=== PATIENT | female | born 1980 | race Caucasian/White ===

== ENCOUNTER 2016-09-04 11:35 | Inpatient (IN) | payer OTHER ==
[~2016-09-04] VITALS: Ht 152.4 cm; Wt 90.7 kg
[2016-09-04 11:35] VITALS: BP 92/55; PULSE 107; RESP 16; TEMP 98; O2SAT 99
[~2016-09-04 11:35] MED LIST: ALBMDI INH
[2016-09-04 12:17] LABS: BASOPHILS % (AUTO) 0.3 % (0.0-2.0); EOSINOPHILS # (AUTO) 0.2 K/uL (0.0-0.4); EOSINOPHILS % (AUTO) 2.8 % (0.0-4.0); HEMATOCRIT 35.9 % (36-48); HEMOGLOBIN 12.5 g/dL (12.0-16.0); LYMPHOCYTES # (AUTO) 0.8 K/uL (1.0-5.5); LYMPHOCYTES % (AUTO) 12.4 % (20.5-51.5); MEAN CORPUSCULAR HEMOGLOBIN 31 pg (27-31); MEAN CORPUSCULAR HGB CONC 35 % (32-36); MEAN CORPUSCULAR VOLUME 90 fL (79.0-98.0); MONOCYTES # (AUTO) 0.6 K/uL (0.0-1.0); MONOCYTES % (AUTO) 8.9 % (1.7-9.3); NEUTROPHILS # (AUTO) 5.1 K/uL (1.8-7.7); NEUTROPHILS % (AUTO) 75.6 % (40.0-70.0); PLATELET COUNT (AUTO) 123 K/uL (130-430); RED BLOOD CELL COUNT(AUTO) 3.97 MIL/uL (4.2-6.2); RED CELL DISTRIBUTION WIDTH 11.8 % (9.0-15.0); WHITE BLOOD COUNT (AUTO) 6.7 K/uL (4.8-10.8)
[2016-09-04 12:21] LABS: ANION GAP 9 (5-15); CALCIUM 8.3 mg/dL (8.4-11.0); CHLORIDE 104 mmol/L (98-107); CREATININE 1.03 mg/dL (0.55-1.30); GLUCOSE 149 mg/dL (70-99); SODIUM SERUM 135 mmol/L (136-145); UREA NITROGEN, BLOOD 11 mg/dL (8-21)
[2016-09-04 12:23] LABS: PROTHROMBIN TIME 10.8 SECS (9.5-12.5)
[2016-09-04 12:24] LABS: GFR AFRICAN AMERICAN 78 mL/min (>90)
[2016-09-04 12:25] LABS: POTASSIUM 2.7 mmol/L (3.5-5.1)
[2016-09-04] MEDS ORDERED: POTASSIUM CHLORIDE 20 MEQ TAB.PRT.SR PO ONE (12:30)
[2016-09-04] MEDS ORDERED: POTASSIUM CHLORIDE 40 MEQ in NS 250 ML IV ONE (12:30)
[2016-09-04] MEDS ORDERED: NACL 0.9% 1,000 ML IV ONE ×2 (12:30→14:15)
[2016-09-04] MEDS ORDERED: TOPI100T11 PO (12:31)
[2016-09-04 12:38] LABS: ALANINE AMINOTRANSFERASE 33 U/L (12-78); ALBUMIN 3.7 g/dL (3.4-4.8); ASPARTATE AMINOTRANSFERASE 27 U/L (10-37); FREE T4 (FREE THYROXINE) 0.5 ng/dL (0.6-1.6); TOTAL BILIRUBIN 0.4 mg/dL (0.0-1.0)
[2016-09-04 12:40] LABS: ALCOHOL, BLOOD < 3 mg/dL (<10)
[2016-09-04 12:59] LABS: BILIRUBIN,URINE NEGATIVE (NEGATIVE); BLOOD, URINE NEGATIVE (NEGATIVE); CLARITY/URINE SL HAZY (CLEAR); COLOR,URINE YELLOW (YELLOW); GLUCOSE,URINE NEGATIVE (NEGATIVE); KETONES,URINE TRACE (NEGATIVE); LEUKOCYTE ESTERASE ,URINE NEGATIVE (NEGATIVE); NITRITE, URINE NEGATIVE (NEGATIVE); PH,URINE 5.5 (5.0-8.0); PROTEIN URINE TRACE (NEGATIVE); UROBILINOGEN,URINE 0.2 (0.2-1.0)
[2016-09-04] MEDS ORDERED: PIPERACILLIN/TAZO 3.375 GM in NS 50 ML IV ONE (13:00)
[2016-09-04 13:08] LABS: BARBITURATE, URINE NEGATIVE (NEG <=200); BENZODIAZEPINE, URINE NEGATIVE (NEG <=150); CANNABINOID, URINE NEGATIVE (NEG <=50); COCAINE, URINE NEGATIVE (NEG <=150); METHAMPHETAMINES SCREEN,URINE NEGATIVE (NEG <=500); OPIATE, URINE NEGATIVE (NEG <=100); PHENCYCLIDINE SCREEN,URINE NEGATIVE (NEG <=25); UR TRICYCLIC ANTIDEPRESSANTS NEGATIVE (NEG <=300); URINE AMPHETAMINE NEGATIVE (NEG <=500); URINE METHADONE NEGATIVE (NEG <=200); URINE OXYCODONE SCREEN NEGATIVE (NEG <=100); URINE PROPOXYPHENE SCREEN NEGATIVE (NEG <=300)
[2016-09-04 13:09] LABS: BACTERIA,URINE FEW /HPF (None Seen); HYALINE CASTS, URINE 0-10 /LPF (None Seen); MUCUS,URINE 1+ /LPF (None Seen); RBC,URINE 0-3 /HPF (0-3); WBC,URINE 0-3 /HPF (0-3)
[2016-09-04] MEDS ORDERED: PIPERACILLIN/TAZOBACTAM 3.375 GM/VIAL (ZOSYN) IV ONE (13:19)
[2016-09-04] MEDS ORDERED: IPRATROPIUM/ALBUTEROL SULFATE 3 ML AMPUL.NEB INH PRN (15:15)
[2016-09-04] MEDS ORDERED: ACETAMINOPHEN 325 MG TABLET PO ONE (15:15)
[2016-09-04] MEDS ORDERED: IPRATROPIUM/ALBUTEROL SULFATE 3 ML AMPUL.NEB INH SCH (15:45)
[2016-09-04 15:53] VITALS: BP 108/63; PULSE 110; RESP 14; TEMP 99; O2SAT 98
[2016-09-04] MEDS ORDERED: ACETAMINOPHEN 325 MG TABLET ONE (15:58)
[2016-09-04 17:00] VITALS: BP 108/63; PULSE 110
[2016-09-04] MEDS: cefTRIAXone 1 GM in D5W 50 ML IV SCH (17:50)
[2016-09-04] MEDS: NACL 0.9% 1,000 ML IV SCH (17:51)
[2016-09-04] MEDS: AZITHROMYCIN 500 MG in NS 250 ML IV SCH (18:50)
[2016-09-04 19:55] VITALS: BP 94/59; PULSE 102; RESP 16; TEMP 99.1; O2SAT 97
[2016-09-04 19:56] VITALS: BP 94/59; PULSE 102; RESP 16; TEMP 99.1; O2SAT 97
[2016-09-04 19:56] LABS: BASOPHILS % (AUTO) 0.2 % (0.0-2.0); EOSINOPHILS % (AUTO) 0.3 % (0.0-4.0); HEMATOCRIT 34.5 % (36-48); LYMPHOCYTES # (AUTO) 0.5 K/uL (1.0-5.5); LYMPHOCYTES % (AUTO) 7.7 % (20.5-51.5); MEAN CORPUSCULAR HEMOGLOBIN 31 pg (27-31); MEAN CORPUSCULAR HGB CONC 34 % (32-36); MEAN CORPUSCULAR VOLUME 90 fL (79.0-98.0); MONOCYTES # (AUTO) 0.6 K/uL (0.0-1.0); MONOCYTES % (AUTO) 8.6 % (1.7-9.3); NEUTROPHILS # (AUTO) 5.3 K/uL (1.8-7.7); NEUTROPHILS % (AUTO) 83.2 % (40.0-70.0); PLATELET COUNT (AUTO) 126 K/uL (130-430); RED BLOOD CELL COUNT(AUTO) 3.83 MIL/uL (4.2-6.2); RED CELL DISTRIBUTION WIDTH 12.1 % (9.0-15.0); WHITE BLOOD COUNT (AUTO) 6.4 K/uL (4.8-10.8)
[2016-09-04] MEDS: IPRATROPIUM/ALBUTEROL SULFATE 3 ML AMPUL.NEB INH SCH (20:06)
[2016-09-04 20:09] LABS: HEMOGLOBIN 11.8 g/dL (12.0-16.0)
[2016-09-04] MEDS: TOPIRAMATE 100 MG TABLET(Topamax) PO SCH (20:59)
[2016-09-04] MEDS: ACETAMINOPHEN 325 MG TABLET PO PRN (22:22)
[2016-09-05] MEDS: IPRATROPIUM/ALBUTEROL SULFATE 3 ML AMPUL.NEB INH SCH ×4 (00:14→18:48)
[2016-09-05 00:36] VITALS: BP 110/65; PULSE 78; RESP 18; TEMP 97.2; O2SAT 95
[2016-09-05] MEDS: NACL 0.9% 1,000 ML IV SCH ×3 (02:02→15:30)
[2016-09-05 04:31] VITALS: BP 111/60; PULSE 78; RESP 18; TEMP 97.5; O2SAT 97
[2016-09-05] MEDS ORDERED: DIATR MEGLU/DIATRIZ SOD 30 ML SOLUTION PO ONE (07:12)
[2016-09-05 07:41] LABS: ALBUMIN 3.3 g/dL (3.4-4.8); CALCIUM 8.2 mg/dL (8.4-11.0); CREATININE 0.6 mg/dL (0.55-1.30); POTASSIUM 3.7 mmol/L (3.5-5.1); TOTAL BILIRUBIN 0.6 mg/dL (0.0-1.0); TOTAL PROTEIN, SERUM 6.9 g/dL (6.4-8.3)
[2016-09-05 08:33] VITALS: BP 130/78; PULSE 99; RESP 17; TEMP 98.7; O2SAT 99
[2016-09-05 08:52] LABS: BASOPHILS % (AUTO) 0.3 % (0.0-2.0); EOSINOPHILS # (AUTO) 0.1 K/uL (0.0-0.4); EOSINOPHILS % (AUTO) 2.1 % (0.0-4.0); HEMATOCRIT 32.1 % (36-48); HEMOGLOBIN 10.9 g/dL (12.0-16.0); LYMPHOCYTES # (AUTO) 0.8 K/uL (1.0-5.5); LYMPHOCYTES % (AUTO) 12.3 % (20.5-51.5); MEAN CORPUSCULAR HEMOGLOBIN 31 pg (27-31); MEAN CORPUSCULAR HGB CONC 34 % (32-36); MEAN CORPUSCULAR VOLUME 91 fL (79.0-98.0); MONOCYTES # (AUTO) 0.7 K/uL (0.0-1.0); MONOCYTES % (AUTO) 10.7 % (1.7-9.3); NEUTROPHILS # (AUTO) 4.5 K/uL (1.8-7.7); NEUTROPHILS % (AUTO) 74.6 % (40.0-70.0); PLATELET COUNT (AUTO) 101 K/uL (130-430); RED BLOOD CELL COUNT(AUTO) 3.51 MIL/uL (4.2-6.2); RED CELL DISTRIBUTION WIDTH 12.3 % (9.0-15.0); WHITE BLOOD COUNT (AUTO) 6.1 K/uL (4.8-10.8)
[2016-09-05] MEDS ORDERED: AZITHROMYCIN 500 MG in NS 250 ML IV SCH (09:00)
[2016-09-05] MEDS ORDERED: cefTRIAXone 1 GM in D5W 50 ML IV SCH (09:00)
[2016-09-05 12:30] VITALS: BP 112/68; PULSE 104; RESP 18; TEMP 98.9; O2SAT 99
[2016-09-05 16:44] VITALS: BP 119/70; PULSE 99; RESP 18; TEMP 98.6; O2SAT 99
[2016-09-05] MEDS: cefTRIAXone 1 GM in D5W 50 ML IV SCH (17:13)
[2016-09-05] MEDS: ACETAMINOPHEN 325 MG TABLET PO PRN (17:14)
[2016-09-05] MEDS: AZITHROMYCIN 500 MG in NS 250 ML IV SCH (17:58)
[2016-09-05 20:00] VITALS: BP 98/57; PULSE 93; RESP 18; TEMP 99.1; O2SAT 98
[2016-09-05] MEDS: TOPIRAMATE 100 MG TABLET(Topamax) PO SCH (20:54)
[2016-09-06] VITALS: BP 115/72; PULSE 82; RESP 16; TEMP 97.2; O2SAT 97
[2016-09-06] MEDS: NACL 0.9% 1,000 ML IV SCH ×3 (00:29→14:04)
[2016-09-06] MEDS: IPRATROPIUM/ALBUTEROL SULFATE 3 ML AMPUL.NEB INH SCH (01:00)
[2016-09-06 04:01] VITALS: BP 119/67; PULSE 83; RESP 16; TEMP 98.8; O2SAT 98
[2016-09-06 08:00] VITALS: BP 107/67; PULSE 100; RESP 17; TEMP 98.2; O2SAT 96
[2016-09-06 12:00] VITALS: BP 111/51; PULSE 87; RESP 21; TEMP 97; O2SAT 96
[2016-09-06 15:26] VITALS: Ht 152.4 cm; Wt 90.7 kg
[2016-09-06 16:04] VITALS: BP 137/69; PULSE 58; RESP 17; TEMP 98.2; O2SAT 96
[2016-09-06] MEDS: cefTRIAXone 1 GM in D5W 50 ML IV SCH (17:49)
[2016-09-06] MEDS ORDERED: DIATR MEGLU/DIATRIZ SOD 30 ML SOLUTION PO ONE (17:53)
[2016-09-06] MEDS: AZITHROMYCIN 500 MG in NS 250 ML IV SCH (19:00)
[2016-09-06] MEDS ORDERED: IOHEXOL 100 ML IV ONE (19:40)
[2016-09-06 20:00] VITALS: BP 123/73; PULSE 79; RESP 18; TEMP 98; O2SAT 98
[2016-09-06] MEDS: TOPIRAMATE 100 MG TABLET(Topamax) PO SCH (20:50)
[2016-09-07] VITALS (7 sets, daily range): BP systolic 101–128; BP diastolic 59–74; PULSE 59–78; RESP 16–19; TEMP 96.2–98.7; O2SAT 96–98
[2016-09-07] MEDS: IPRATROPIUM/ALBUTEROL SULFATE 3 ML AMPUL.NEB INH SCH ×2 (00:25→07:00)
[2016-09-07 07:22] LABS: BASOPHILS % (AUTO) 0.6 % (0.0-2.0); EOSINOPHILS # (AUTO) 0.3 K/uL (0.0-0.4); EOSINOPHILS % (AUTO) 8.5 % (0.0-4.0); HEMATOCRIT 36.2 % (36-48); HEMOGLOBIN 12.5 g/dL (12.0-16.0); LYMPHOCYTES % (AUTO) 25.7 % (20.5-51.5); MEAN CORPUSCULAR HEMOGLOBIN 32 pg (27-31); MEAN CORPUSCULAR HGB CONC 35 % (32-36); MEAN CORPUSCULAR VOLUME 91 fL (79.0-98.0); MONOCYTES # (AUTO) 0.5 K/uL (0.0-1.0); MONOCYTES % (AUTO) 12.3 % (1.7-9.3); NEUTROPHILS % (AUTO) 52.9 % (40.0-70.0); PLATELET COUNT (AUTO) 125 K/uL (130-430); RED BLOOD CELL COUNT(AUTO) 3.96 MIL/uL (4.2-6.2); RED CELL DISTRIBUTION WIDTH 11.9 % (9.0-15.0); WHITE BLOOD COUNT (AUTO) 3.8 K/uL (4.8-10.8)
[2016-09-07 07:32] LABS: CALCIUM 8.5 mg/dL (8.4-11.0); CREATININE 0.63 mg/dL (0.55-1.30); POTASSIUM 3.4 mmol/L (3.5-5.1)
[2016-09-07] MEDS ORDERED: POTASSIUM CHLORIDE 20 MEQ TAB.PRT.SR PO ONE (12:45)
== END 2016-09-07 16:40 | disposition home or self-care (01) | DRG 315 ==
LOC: SED 11:35 → STU 13:30
DX: I95.9 Hypotension, unspecified (principal); J45.901 Unspecified asthma with (acute) exacerbation; D64.9 Anemia, unspecified; D69.6 Thrombocytopenia, unspecified; J44.9 Chronic obstructive pulmonary disease, unspecified; J06.9 Acute upper respiratory infection, unspecified; R56.9 Unspecified convulsions; Z85.3 Personal history of malignant neoplasm of breast; Z88.2 Allergy status to sulfonamides; Z90.13 Acquired absence of bilateral breasts and nipples; Z86.73 Personal history of transient ischemic attack (TIA), and cerebral infarction without residual deficits; B34.9 Viral infection, unspecified
CPT/HCPCS: 36415; 70450-TC; 71010; 80048; 80053; 80307; 81000-TC; 82140-TC; 83605; 83880; 84439; 84484; 84703; 85025; 85610-TC; 87040-TC; 87230-TC; 93005; 93306; 94640; 94760; 96361; 96365; 99291; G0482; J0456; J0696; J2543; J3480; J7030; J7050; J7060; Q9964; Q9967